=== PATIENT | male | born 1950 | race Two or more races ===

== ENCOUNTER 2022-04-05 08:30 | Outpatient (CLI) | payer MEDICARE, OTHER ==
[2022-04-05] MEDS ORDERED: CADEXOMER IODINE UD 5 GM TUBE ONE (09:24)
== END 2022-04-05 23:59 | disposition home or self-care (01) ==
LOC: WOU 08:30
PROVIDERS: ATTEND Specialist
DX: M71.012 Abscess of bursa, left shoulder (principal); E11.22 Type 2 diabetes mellitus with diabetic chronic kidney disease; I12.0 Hypertensive chronic kidney disease with stage 5 chronic kidney disease or end stage renal disease; N18.6 End stage renal disease; Z99.2 Dependence on renal dialysis; Z87.891 Personal history of nicotine dependence; Z79.4 Long term (current) use of insulin
CPT/HCPCS: 87070; 87075; 87077; 87186; A6407 ×2; G0463

== ENCOUNTER 2022-04-12 08:40 | Outpatient (CLI) | payer MEDICARE, OTHER ==
[2022-04-12] MEDS ORDERED: CADEXOMER IODINE UD 5 GM TUBE ONE (09:22)
== END 2022-04-12 23:59 | disposition home or self-care (01) ==
LOC: WOU 08:40
PROVIDERS: ATTEND Specialist
DX: L02.414 Cutaneous abscess of left upper limb (principal); E11.9 Type 2 diabetes mellitus without complications; Z79.4 Long term (current) use of insulin; B95.8 Unspecified staphylococcus as the cause of diseases classified elsewhere; Z16.29 Resistance to other single specified antibiotic
CPT/HCPCS: A6407; G0463

== ENCOUNTER 2022-04-19 08:44 | Outpatient (CLI) | payer MEDICARE, OTHER ==
[2022-04-19] MEDS ORDERED: LIDOCAINE 2% JEL 5 ML TUBE ONE (08:51)
== END 2022-04-19 23:59 | disposition home or self-care (01) ==
LOC: WOU 08:44
PROVIDERS: ATTEND Specialist
DX: L02.212 Cutaneous abscess of back [any part, except buttock and flank] (principal); E11.9 Type 2 diabetes mellitus without complications; Z79.4 Long term (current) use of insulin
CPT/HCPCS: 87070; 87075; 87186; G0463

== ENCOUNTER 2022-05-03 08:56 | Outpatient (CLI) | payer MEDICARE, OTHER ==
[2022-05-03] MEDS ORDERED: DAKINS HALF STRENGTH (0.25%) 480 ML BOTTLE ONE (09:08)
== END 2022-05-03 23:59 | disposition home or self-care (01) ==
LOC: WOU 08:56
PROVIDERS: ATTEND Specialist
DX: L02.212 Cutaneous abscess of back [any part, except buttock and flank] (principal); L08.0 Pyoderma; E11.22 Type 2 diabetes mellitus with diabetic chronic kidney disease; I12.0 Hypertensive chronic kidney disease with stage 5 chronic kidney disease or end stage renal disease; N18.6 End stage renal disease; Z99.2 Dependence on renal dialysis; Z87.891 Personal history of nicotine dependence; Z79.4 Long term (current) use of insulin
CPT/HCPCS: A6209; G0463

== ENCOUNTER 2022-05-10 09:04 | Outpatient (CLI) | payer MEDICARE, OTHER | END 2022-05-10 23:59 | disposition home or self-care (01) | LOC: WOU 09:04 | PROVIDERS: ATTEND Specialist | DX: L02.416 Cutaneous abscess of left lower limb (principal); L98.0 Pyogenic granuloma; E11.22 Type 2 diabetes mellitus with diabetic chronic kidney disease; I12.0 Hypertensive chronic kidney disease with stage 5 chronic kidney disease or end stage renal disease; N18.6 End stage renal disease; Z99.2 Dependence on renal dialysis; Z87.891 Personal history of nicotine dependence; Z79.4 Long term (current) use of insulin | CPT/HCPCS: G0463; A6209 ==